=== PATIENT | female | born 1965 | race Caucasian/White ===

== ENCOUNTER 2021-06-20 16:20 | Emergency (ER) | payer BC ==
[2021-06-20 16:48] VITALS: BP 128/80; PULSE 71; TEMP 99.4; BMI 27.9
[2021-06-20] MEDS ORDERED: RABIES IMMUNE GLOBULIN 300 UNITS/1 ML VIAL IM ONE (18:06)
[2021-06-20] MEDS ORDERED: RABIES VACCINE (PCEC)/PF 2.5 UNIT/VIAL IM ONE ×2 (18:06→18:14)
[2021-06-20] MEDS ORDERED: DIPHTH,PERTUSS(ACELL),TET 0.5 ML DISP.SYRIN IM ONE ×2 (18:53)
== END 2021-06-20 19:10 | disposition home or self-care (01) ==
LOC: JERFT 16:20
PROC: 3E0234Z Introduction of Serum, Toxoid and Vaccine into Muscle, Percutaneous Approach (ICD-10-PCS; principal; 2021-06-20)
DX: Z20.3 Contact with and (suspected) exposure to rabies (principal)
CPT/HCPCS: 90375; 90675; 90715; 99283-25

== ENCOUNTER 2021-07-09 12:56 | Emergency (ER) | payer BC, OTHER ==
[2021-07-09] MEDS ORDERED: RABIES VACCINE (PCEC)/PF 2.5 UNIT/VIAL IM ONE ×2 (13:02→13:37)
[2021-07-09 13:13] VITALS: BP 133/75; PULSE 68; TEMP 98.2; BMI 27.9
== END 2021-07-09 14:28 | disposition home or self-care (01) ==
LOC: FER 12:56
PROC: 3E0234Z Introduction of Serum, Toxoid and Vaccine into Muscle, Percutaneous Approach (ICD-10-PCS; principal; 2021-07-09)
DX: Z29.14 Encounter for prophylactic rabies immune globulin (principal)
CPT/HCPCS: 90675; 99284-25

== ENCOUNTER 2021-07-16 12:00 | Emergency (ER) | payer BC, OTHER ==
[2021-07-16] MEDS ORDERED: RABIES VACCINE (PCEC)/PF 2.5 UNIT/VIAL IM ONE ×2 (12:07→12:15)
[2021-07-16 12:26] VITALS: BP 155/82; PULSE 72; TEMP 99.7; BMI 27.9
== END 2021-07-16 12:34 | disposition home or self-care (01) ==
LOC: FER 12:00
PROC: 3E0234Z Introduction of Serum, Toxoid and Vaccine into Muscle, Percutaneous Approach (ICD-10-PCS; principal; 2021-07-16)
DX: Z20.3 Contact with and (suspected) exposure to rabies (principal)
CPT/HCPCS: 90675; 99283-25

== ENCOUNTER 2021-07-23 15:05 | Emergency (ER) | payer BC, OTHER ==
[2021-07-23] MEDS ORDERED: RABIES VACCINE (PCEC)/PF 2.5 UNIT/VIAL IM ONE ×2 (15:07→15:13)
[2021-07-23 15:12] VITALS: BP 163/93; PULSE 74; TEMP 99; BMI 24.1
== END 2021-07-23 15:26 | disposition home or self-care (01) ==
LOC: FER 15:05
PROC: 3E0234Z Introduction of Serum, Toxoid and Vaccine into Muscle, Percutaneous Approach (ICD-10-PCS; principal; 2021-07-23)
DX: Z29.14 Encounter for prophylactic rabies immune globulin (principal)
CPT/HCPCS: 90675; 99284-25